=== PATIENT | male | born 1985 | race Caucasian/White ===

== ENCOUNTER 2020-09-13 16:06 | Emergency (ER) | payer MEDICAID, OTHER ==
[~2020-09-13] VITALS: Ht 190.5 cm; Wt 182.6 kg
[~2020-09-13 16:06] MED LIST: HYDR1TAB PO; NO HOME MEDS
[2020-09-13] MEDS ORDERED: CEPH250T PO (16:59)
[2020-09-13] MEDS ORDERED: bacitracin 15gm ointment TP ONE (17:05)
[2020-09-13 17:20] VITALS: BP 155/87
== END 2020-09-13 17:26 | disposition home or self-care (01) ==
LOC: ER 16:07
DX: S91.109A Unspecified open wound of unspecified toe(s) without damage to nail, initial encounter (principal); L03.818 Cellulitis of other sites; Z79.2 Long term (current) use of antibiotics; X58.XXXA Exposure to other specified factors, initial encounter; Y93.89 Activity, other specified; Y92.89 Other specified places as the place of occurrence of the external cause; Y99.8 Other external cause status
CPT/HCPCS: 99283

== ENCOUNTER 2021-12-08 08:51 | Emergency (ER) | payer SELFPAY ==
[~2021-12-08] VITALS: Ht 188 cm; Wt 159.1 kg
[2021-12-08 09:46] VITALS: BP 146/90
[2021-12-08] MEDS ORDERED: HYDR-3972 PO (09:50)
[2021-12-08] MEDS ORDERED: CLIN-97 PO (09:51)
[2021-12-08] MEDS ORDERED: CHLO118M PO (09:51)
== END 2021-12-08 10:10 | disposition home or self-care (01) ==
LOC: ER 08:52
DX: K04.7 Periapical abscess without sinus (principal)
CPT/HCPCS: 99283